=== PATIENT | female | born 1975 | race Caucasian/White ===

== ENCOUNTER → 2017-12-31 | Outpatient (CLI) | payer OTHER ==
--- NOTE | 2018-01-01 13:39 | KCIC ---
Bilateral digital screening mammograms: Reason for examination: Routine baseline screening. Interpretation was made with the benefit of CAD. The skin and nipples show no abnormalities. No abnormal axillary lymph nodes are seen. The breast parenchyma shows scattered fibroglandular density. (Breast density: Category B.) There is a small 5.3 mm circumscribed nodule present in the central 9:00 B position of the right breast. This may represent a small cyst. Recommend further evaluation with ultrasound. There are no other dominant masses, suspicious calcifications or architectural distortions. Impression: 5.3 mm circumscribed nodule present centrally at the 9:00 B position of the right breast. Recommend further evaluation with ultrasound. BI-RADS Category 0: Incomplete. Needs additional imaging evaluation. "Our facility is accredited by the [employer] Mammography [employer]." This patient's information has been entered into a reminder system for the patient to be notified with the results of her examination and a target date for the next mammogram. Electronically signed by: Leelee Ellis MD (01/01/2018 1:36 PM) [id number]
== END | disposition home or self-care (01) ==
LOC: KCIC MAMMO 15:41
PROVIDERS: ATTEND Family Medicine
DX: Z12.31 Encounter for screening mammogram for malignant neoplasm of breast (principal)
CPT/HCPCS: 77067

== ENCOUNTER → 2018-01-19 | Outpatient (CLI) | payer OTHER ==
--- NOTE | 2018-01-19 15:22 | KCIC ---
Right breast ultrasound: Reason for examination: Nodular density on screening mammogram. Comparison is made to mammographic exam dated 12/31/2017. Ultrasound examination was performed with attention to the area of mammographic concern and at the right axilla. No discrete cystic or solid nodule is seen. No abnormal appearing lymph nodes are seen in the axilla. IMPRESSION: No focal abnormalities evident in the right breast. The density may have represented a cystic or fibrocystic lesion which has resolved. Recommend reevaluation with mammograms and ultrasound in 6 months. BI-RADS Category 3: Probably Benign. "Our facility is accredited by the [employer] Mammography [employer]." This patient's information has been entered into a reminder system for the patient to be notified with the results of her examination and a target date for the next mammogram. Electronically signed by: Leelee Ellis MD (01/19/2018 3:19 PM) [id number]
== END | disposition home or self-care (01) ==
LOC: KCIC US 13:35
PROVIDERS: ATTEND Family Medicine
DX: R92.8 Other abnormal and inconclusive findings on diagnostic imaging of breast (principal)
CPT/HCPCS: 76641